=== PATIENT | male | born 2000 ===

== ENCOUNTER 2023-01-29 12:30 | Outpatient (CLI) | payer OTHER, SELFPAY ==
--- NOTE | ~2023-01-29 | MR_ITS ---
EXAMINATION: MR knee RT wo con DATE: 01/29/2023 13:19 INDICATION: Medial right knee pain after injury 2 weeks ago. History of prior meniscal repair. TECHNIQUE: Magnetic resonance imaging (MRI) of the right knee was performed without intravenous contr ast. Sequences included axial PD-weighted FS FSE, coronal PD-weighted FSE and PD-weighted FS FSE, sag ittal PD-weighted FSE, and sagittal T2-weighted FS FSE. COMPARISON: None. FINDINGS: Medial compartment: Oblique tear of the posterior horn and body, extending to the articular surface. Flap of meniscal tis keri extends into the posterior medial joint recess. 3 mm focus of full-thickness cartilage loss on th e weightbearing surface of the medial femoral condyle, with subjacent focal marrow edema. Mild diffus e cartilage thinning. Lateral compartment: Meniscus intact. Full-thickness, linear cartilage signal abnormality on the weightbearing surface of the lateral femoral condyle, with minimal subjacent reactive edema. Patellofemoral compartment: Cartilage and retinacula intact. Ligaments and tendons: Mild thickening and signal abnormality in the anterior cruciate ligament. The PCL, MCL, and LCL are i ntact. The remaining flexor and extensor tendons are intact. Fluid: Trace joint fluid. Osseous/other: Focal marrow edema in the posterior medial aspect of the medial tibial plateau, deep to the meniscal tear and flap. IMPRESSION: 1. Oblique tear of the posterior horn/body of the medial meniscus, with a displaced flap into the pos terior medial joint recess, and mild subjacent tibial marrow edema. 2. Partial ACL tear. 3. Focal full-thickness cartilage defects and signal abnormality on the weightbearing surfaces of the MFC and LFC, with minor subjacent reactive marrow edema. Reviewed, dictated and finalized at [facility] [place] [facility] IMPRESSION: 1. Oblique tear of the posterior horn/body of the medial meniscus, with a displ aced flap into the posterior medial joint recess, and mild subjacent tibial mar row edema. 2. Partial ACL tear. 3. Focal full-thickness cartilage defects and signal abnormality on the weightb earing surfaces of the MFC and LFC, with minor subjacent reactive marrow edema.
== END 2023-01-29 12:31 ==
PROVIDERS: PCP Orthopaedic Surgery; Visit Provider Orthopaedic Surgery
DX: S83.241A Other tear of medial meniscus, current injury, right knee, initial encounter (principal); X58.XXXA Exposure to other specified factors, initial encounter
CPT/HCPCS: 73721